=== PATIENT | male | born 1965 | race Caucasian/White ===

== ENCOUNTER 2020-04-14 07:49 | Outpatient (CLI) | payer BC ==
--- NOTE | 2020-04-14 13:23 | NM ---
RADIONUCLIDE GASTRIC EMPTYING SCAN: History: Nausea with vomiting, unspecified RADIOPHARMACEUTICAL: 2 mCi technetium 99m sulfur colloid administered orally in scrambled eggs. FINDINGS: Gastric emptying at different times is as follows: 1 hour: 53% 2 hours: 57% 3 hours: 65% 4 hours: 73% IMPRESSION: Delayed gastric emptying.
== END 2020-04-14 07:50 | disposition home or self-care (01) ==
LOC: NM 07:49
PROVIDERS: ATTEND Internal Medicine Gastroenterology
DX: R11.2 Nausea with vomiting, unspecified (principal)
CPT/HCPCS: 78264; A9541

== ENCOUNTER 2021-03-30 15:07 | Emergency (ER) | payer BC ==
[2021-03-30 16:05] LABS: Anion Gap 14 mmol/L (10-20); BUN (Urea Nitrogen) 43 mg/dL (8.4-25.7); Calc. Creatinine Clearance 0 mL/min (70-130); Carbon Dioxide 19 mmol/L (22-29); Chloride 113 mmol/L (98-107); Sodium 140 mmol/L (136-145)
[2021-03-30 16:06] LABS: ALT (SGPT) 14 U/L (8-55); AST (SGOT) 14 U/L (5-34); Albumin 4.3 g/dL (3.5-5.0); Alkaline Phosphatase 69 U/L (40-110); Bilirubin, Total 0.8 mg/dL (0.2-1.2); Calcium 9.7 mg/dL (7.8-10.44); Glucose 147 mg/dL (70-105); Protein, Total 7.3 g/dL (6.0-8.3)
[2021-03-30] MEDS ORDERED: Calcium Chloride 1 GM/10 ML Abboject SYRINGE ONE (16:33)
[2021-03-30] MEDS ORDERED: Insulin Regular 300 UNITS/3 ML VIAL ONE (16:33)
[2021-03-30] MEDS ORDERED: Dextrose 50% Abboject 50 ML SYRINGE ONE (16:33)
[2021-03-30] MEDS ORDERED: Sodium Bicarb 50 MEQ/50 ML Abboject 8.4% SYRINGE ONE (16:33)
[2021-03-30 16:34] LABS: #Basophils 0.2 thou/uL (0.0-0.2); #Eosinphils 0.6 thou/uL (0.0-0.7); #Lymphocytes 2.3 thou/uL (1.20-3.40); #Monocytes 0.7 thou/uL (0.11-0.59); #Neutrophils 8.1 thou/uL (1.40-6.50); %Basophils 1.8 % (0.0-1.0); %Eosinophils 4.7 % (0.0-10.0); %Lymphocytes 19.3 % (21.0-51.0); %Monocytes 5.7 % (0.0-10.0); %Neutrophils 68.5 % (42.0-75.0); Mean Corpuscular HGB CONC 29.5 g/dL (32.0-36.0); Mean Corpuscular Hemoglobin 16.7 pg (27.0-31.0); Mean Corpuscular Volume 56.5 fL (78.0-98.0); Mean Platelet Volume 6.7 fL (7.4-10.4); Platelet Count 779 thou/uL (130-400); RBC Distribution Width 21.2 % (11.5-14.5); White Blood Cell (WBC) Count 11.8 thou/uL (4.8-10.8)
[2021-03-30 16:59] LABS: Anisocytosis SLIGHT = 6-15 cells (100X) (0-5/hpf); Band 10 % (5-11); Eosinophils 2 % (0-10); Lymphocytes 25 % (21-51); MDiff Complete? YES; Monocytes 5 % (0-10); Neutrophil 53 % (42-75); Platelet Morphology Comment Appears Increased; Reactive Lymphocytes 4 % (0-10)
== END 2021-03-30 17:20 | disposition home or self-care (01) ==
LOC: ERS 15:07
DX: E87.5 Hyperkalemia (principal); T46.4X5A Adverse effect of angiotensin-converting-enzyme inhibitors, initial encounter; I10 Essential (primary) hypertension; E11.9 Type 2 diabetes mellitus without complications; Z87.891 Personal history of nicotine dependence; Z00.00 Encounter for general adult medical examination without abnormal findings; E11.43 Type 2 diabetes mellitus with diabetic autonomic (poly)neuropathy
CPT/HCPCS: 36415; 71045; 80053; 80061; 81001; 82043; 82550; 83036; 83880; 84484; 85025; 85060; 93005; 94760; 96374; 96375; J1815

== ENCOUNTER 2021-04-07 08:35 | Emergency (ER) | payer BC ==
[2021-04-07 09:58] LABS: ALT (SGPT) 12 U/L (8-55); AST (SGOT) 16 U/L (5-34); Albumin 4.1 g/dL (3.5-5.0); Alkaline Phosphatase 74 U/L (40-110); Anion Gap 12 mmol/L (10-20); BUN (Urea Nitrogen) 19 mg/dL (8.4-25.7); Bilirubin, Total 0.9 mg/dL (0.2-1.2); Calc. Creatinine Clearance 0 mL/min (70-130); Calcium 9.5 mg/dL (7.8-10.44); Carbon Dioxide 24 mmol/L (22-29); Chloride 108 mmol/L (98-107); Globulin 2.9 g/dL (2.4-3.5); Glucose 163 mg/dL (70-105); Potassium 6.4 mmol/L (3.5-5.1); Sodium 138 mmol/L (136-145)
[2021-04-07] MEDS ORDERED: LOKELMA 10 GM PACKET PO SCH (11:00)
[2021-04-07 11:03] LABS: Actual Bicarbonate (HCO3v) 21 mEq/L (22-28); Analyzer IN Cardio ER; Base Excess -4.5 mEq/L (-2.0 to +3.0); Calcium, Ionized (venous) 1.17 mmol/L (1.16-1.32); Chloride (VBG) 106 mmol/L (98-106); Hemoglobin (Hb) 14.2 g/dL (13.1-17.2); Potassium (VBG) 5.46 mmol/L (3.70-5.30); Sodium 137.6 mmol/L (133-146); pH (venous) 7.35 (7.32-7.43)
[2021-04-07 12:20] LABS: Anisocytosis SLIGHT = 6-15 cells (100X) (0-5/hpf); Band 3 % (5-11); Eosinophils 4 % (0-10); Hemoglobin 14.3 g/dL (14.0-18.0); Large Platelets SLIGHT; Lymphocytes 18 % (21-51); MDiff Complete? YES; Mean Corpuscular HGB CONC 29.9 g/dL (32.0-36.0); Mean Corpuscular Hemoglobin 16.6 pg (27.0-31.0); Mean Corpuscular Volume 55.5 fL (78.0-98.0); Mean Platelet Volume 6.4 fL (7.4-10.4); Monocytes 1 % (0-10); Neutrophil 67 % (42-75); Platelet Count 661 thou/uL (130-400); Platelet Morphology Comment Appears Increased; Polychromasia SLIGHT = 2-3 cells (100X) (0-2/hpf); RBC Distribution Width 21.6 % (11.5-14.5); Red Blood Cell (RBC) Count 8.82 mill/uL (4.70-6.10); Vacuoles SLIGHT; White Blood Cell (WBC) Count 12.4 thou/uL (4.8-10.8)
== END 2021-04-07 13:15 | disposition home or self-care (01) ==
LOC: ERS 08:35
DX: E87.5 Hyperkalemia (principal); I10 Essential (primary) hypertension; E11.9 Type 2 diabetes mellitus without complications; Z87.891 Personal history of nicotine dependence; Z79.899 Other long term (current) drug therapy
CPT/HCPCS: 36415; 80053; 82805; 85025; 93005

== ENCOUNTER 2021-04-27 14:32 | Outpatient (CLI) | payer BC | END 2021-04-27 14:33 | disposition home or self-care (01) | LOC: BICULT 14:32 | PROVIDERS: ATTEND Internal Medicine Nephrology | DX: N18.30 Chronic kidney disease, stage 3 unspecified (principal); R16.1 Splenomegaly, not elsewhere classified | CPT/HCPCS: 76770 ==

== ENCOUNTER → 2024-04-08 | Day surgery (SDC) | payer BC ==
[~2024-04-08] MED LIST: Lidocaine 1% w/Epinephrine 1:100K 20 ML VIAL ONE; Sodium Bicarbonate 2.5 MEQ/5 ML SDV ONE; fentaNYL 50 mcg/mL 1 mL Vial ONE
[2024-04-08 08:00] LABS: #Basophils 0.63 10x3/uL (0.0-0.2); %Basophils 2.6 % (0.0-1.0); %Eosinophils 1.5 % (0.0-10.0); %Lymphocytes 6.6 % (21.0-51.0); %Monocytes 2.8 % (0.0-10.0); %Neutrophils 85.2 % (42.0-75.0); Hematocrit 48.1 % (42.0-52.0); Hemoglobin 13.4 g/dL (14.0-18.0); Mean Corpuscular HGB CONC 27.9 g/dL (32.0-36.0); Mean Corpuscular Hemoglobin 20.1 pg (27.0-31.0); Mean Corpuscular Volume 72.2 fL (78.0-98.0); Mean Platelet Volume 8.5 fL (7.4-10.4); Platelet Count 329 10x3/uL (130-400); RBC Distribution Width 22.5 % (11.5-14.5); Red Blood Cell (RBC) Count 6.66 mill/uL (4.70-6.10)
[2024-04-08 08:14] LABS: INR-International Normal Ratio 1.1; Prothrombin Time 14.3 sec (12.0-14.7)
[2024-04-08 08:15] LABS: PTT 38.1 sec (22.9-36.1)
[2024-04-08 13:58] LABS: Ref Lab Test Ordered NEO CPMPREHENSIVE; Reference Lab Name NEO
== END ==
LOC: CT 07:29
PROVIDERS: ATTEND Internal Medicine Hematology & Oncology
PROC: 07DR3ZX Extraction of Iliac Bone Marrow, Percutaneous Approach, Diagnostic (ICD-10-PCS; principal; 2024-04-08)
DX: C79.52 Secondary malignant neoplasm of bone marrow (principal); D72.829 Elevated white blood cell count, unspecified; D45 Polycythemia vera; D47.1 Chronic myeloproliferative disease
CPT/HCPCS: 38222; 77012; 85025; 85097; 85610; 85730; 88184; 88237; 88305; 88311; 88313; J3010

== ENCOUNTER 2025-01-19 14:40 | Outpatient (CLI) | payer BC | END 2025-01-19 14:41 | disposition home or self-care (01) | LOC: BICRAD 14:40 | PROVIDERS: ATTEND Nurse Practitioner Family | DX: D72.828 Other elevated white blood cell count (principal); R91.8 Other nonspecific abnormal finding of lung field; J18.9 Pneumonia, unspecified organism; S22.32XD Fracture of one rib, left side, subsequent encounter for fracture with routine healing | CPT/HCPCS: 71046 ==